=== PATIENT | male | born 2000 | race Caucasian/White ===

== ENCOUNTER 2020-09-23 08:11 | Emergency (ER) | payer BC, OTHER ==
[2020-09-23 08:19] VITALS: TEMP 98
[2020-09-23] MEDS ORDERED: MAG HYDROX/AL HYDROX/SIMETH 30 ML, HYOSCYAMINE ELIXIR 10 ML, LIDOCAINE VISCOUS 2% 10 ML PO STA ×3 (08:31)
--- NOTE | 2020-09-23 08:41 | ED ---
General Adult HPI - General Chief complaint: Chest Pain Stated complaint: Chest pain Time Seen by Provider: 09/23/20 08:23 Source: patient, family, RN notes reviewed Mode of arrival: ambulatory Limitations: no limitations - History of Present Illness Initial comments: This a 20-year-old male presents emergency Department with chief complaint of epigastric discomfort. Patient states that the last 2 mornings states it feels like a burning, squeezing-type discomfort. Patient states that cold foods seem to help with. Patient denies any upper chest pain, back pain, shortness breath, fevers or chills no diarrhea no nausea vomiting. 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 He is unsure exactly what the surgery was. He does follow-up with cardiology locally. Patient denies any medications. Denies any other complaints. - Related Data Home Medications Medication Instructions Recorded Confirmed Desmopressin [Ddavp] 0.6 mg PO HS 07/22/14 10/12/15 Divalproex [Depakote] 500 mg PO BID 07/22/14 10/12/15 guanFACINE HCL [Intuniv] 4 mg PO DAILY 07/22/14 10/12/15 Cholecalciferol [Vitamin D3] 2,000 unit PO DAILY 10/12/15 10/12/15 Cyproheptadine HCl [Periactin] 4 mg PO HS 10/12/15 10/12/15 Dexmethylphenidate HCl [Focalin Xr] 15 mg PO DAILY 10/12/15 10/12/15 Allergies Allergy/AdvReac Type Severity Reaction Status Date / Time No Known Allergies Allergy Verified 09/23/20 08:12 Review of Systems ROS Statement: Those systems with pertinent positive or pertinent negative responses have been documented in the HPI. ROS Other: All systems not noted in ROS Statement are negative. Past Medical History Additional Past Medical History / Comment(s): social anxiety adhd behavior disorder History of Any Multi-Drug Resistant Organisms: None Reported Past Surgical History: Heart Catheterization Additional Past Surgical History / Comment(s): Medical: Heart surgery. Past Psychological History: No Psychological Hx Reported Smoking Status: Never smoker Past Alcohol Use History: Occasional Past Drug Use History: None Reported General Exam Limitations: no limitations General appearance: alert, in no apparent distress Head exam: Present: atraumatic, normocephalic, normal inspection Neck exam: Present: normal inspection, full ROM. Absent: tenderness, meningismus, lymphadenopathy Respiratory exam: Present: normal lung sounds bilaterally. Absent: respiratory distress, wheezes, rales, rhonchi, stridor Cardiovascular Exam: Present: regular rate, normal rhythm, normal heart sounds. Absent: systolic murmur, diastolic murmur, rubs, gallop, clicks GI/Abdominal exam: Present: soft, tenderness (Epigastric), normal bowel sounds. Absent: distended, guarding, rebound, rigid Neurological exam: Present: alert Skin exam: Present: warm, dry, intact, normal color. Absent: rash Course Vital Signs 09/23/20 08:12 Temperature 98 F Pulse Rate 68 Respiratory 18 Rate Blood Pressure 127/77 O2 Sat by Pulse 95 Oximetry EKG Findings - EKG Comments: EKG Findings:: Normal sinus rhythm incomplete right bundle rate of 69 MD 126 QRS 102 QT/ QTC 416/445 - EKG Results: EKG: interpreted by [facility] Medical Decision Making - Medical Decision Making Patient's labs are unremarkable. Patient symptoms more consistent with reflux. Patient will be discharged in stable condition return parameters were discussed. - Lab Data Result diagrams: 09/23/20 08:45 09/23/20 08:45 Lab Results 09/23/20 09/23/20 09/23/20 Range/Units 08:45 08:45 08:45 WBC 8.3 (3.8-10.6) k/uL RBC 4.90 (4.30-5.90) m/uL Hgb 15.2 (13.0-17.5) gm/dL Hct 43.1 (39.0-53.0) % MCV 87.9 (80.0-100.0) fL MCH 31.0 (25.0-35.0) pg MCHC 35.3 (31.0-37.0) g/dL RDW 12.6 (11.5-15.5) % Plt Count 231 (150-450) k/uL MPV 7.9 Neutrophils % 82 % Lymphocytes % 11 % Monocytes % 6 % Eosinophils % 1 % Basophils % 0 % Neutrophils # 6.7 (1.3-7.7) k/uL Lymphocytes # 0.9 L (1.0-4.8) k/uL Monocytes # 0.5 (0-1.0) k/uL Eosinophils # 0.1 (0-0.7) k/uL Basophils # 0.0 (0-0.2) k/uL PT 10.2 (9.0-12.0) sec INR 0.9 (<1.2) APTT 24.9 (22.0-30.0) sec Sodium 143 (137-145) mmol/L Potassium 4.9 (3.5-5.1) mmol/L Chloride 104 (98-107) mmol/L Carbon Dioxide 29 (22-30) mmol/L Anion Gap 10 mmol/L BUN 12 (9-20) mg/dL Creatinine 0.68 (0.66-1.25) mg/dL Est GFR (CKD-EPI)AfAm >90 (>60 ml/min/1.73 sqM) Est GFR (CKD-EPI)NonAf >90 (>60 ml/min/1.73 sqM) Glucose 104 H (74-99) mg/dL Calcium 10.6 H (8.4-10.2) mg/dL Magnesium 2.2 (1.6-2.3) mg/dL Total Bilirubin 0.5 (0.2-1.3) mg/dL AST 32 (17-59) U/L ALT 33 (4-49) U/L Alkaline Phosphatase 98 (38-126) U/L Troponin I (0.000-0.034) ng/mL Total Protein 7.9 (6.3-8.2) g/dL Albumin 5.0 (3.5-5.0) g/dL Lipase 120 (23-300) U/L 09/23/20 Range/Units 08:45 WBC (3.8-10.6) k/uL RBC (4.30-5.90) m/uL Hgb (13.0-17.5) gm/dL Hct (39.0-53.0) % MCV (80.0-100.0) fL MCH (25.0-35.0) pg MCHC (31.0-37.0) g/dL RDW (11.5-15.5) % Plt Count (150-450) k/uL MPV Neutrophils % % Lymphocytes % % Monocytes % % Eosinophils % % Basophils % % Neutrophils # (1.3-7.7) k/uL Lymphocytes # (1.0-4.8) k/uL Monocytes # (0-1.0) k/uL Eosinophils # (0-0.7) k/uL Basophils # (0-0.2) k/uL PT (9.0-12.0) sec INR (<1.2) APTT (22.0-30.0) sec Sodium (137-145) mmol/L Potassium (3.5-5.1) mmol/L Chloride (98-107) mmol/L Carbon Dioxide (22-30) mmol/L Anion Gap mmol/L BUN (9-20) mg/dL Creatinine (0.66-1.25) mg/dL Est GFR (CKD-EPI)AfAm (>60 ml/min/1.73 sqM) Est GFR (CKD-EPI)NonAf (>60 ml/min/1.73 sqM) Glucose (74-99) mg/dL Calcium (8.4-10.2) mg/dL Magnesium (1.6-2.3) mg/dL Total Bilirubin (0.2-1.3) mg/dL AST (17-59) U/L ALT (4-49) U/L Alkaline Phosphatase (38-126) U/L Troponin I <0.012 (0.000-0.034) ng/mL Total Protein (6.3-8.2) g/dL Albumin (3.5-5.0) g/dL Lipase (23-300) U/L Disposition Clinical Impression: Atypical chest pain, GERD (gastroesophageal reflux disease) Disposition: HOME SELF-CARE Condition: Stable Instructions (If sedation given, give patient instructions): Gastroesophageal Reflux Disease (ED) Additional Instructions: Please return to the Emergency Department if symptoms worsen or any other concerns. Is patient prescribed a controlled substance at d/c from ED?: No Referrals: Filemon Coleman DO [Primary Care Provider] - 1-2 days Time of Disposition: 09:36
--- NOTE | 2020-09-23 09:01 | XR ---
EXAMINATION TYPE: XR chest 2V DATE OF EXAM: 09/23/2020 COMPARISON: 10/12/2015 HISTORY: 20-year-old male with chest pain TECHNIQUE: PA and lateral views FINDINGS: Median sternotomy wires are present. Heart normal size. Aorta and pulmonary vasculature within normal limits. No consolidation or pleural effusion. IMPRESSION: Median sternotomy wires. No acute cardiopulmonary process.
[2020-09-23 09:05] LABS: Basophils % (A) 0 %; Eosinophils # (A) 0.1 k/uL (0-0.7); Eosinophils % (A) 1 %; HCT 43.1 % (39.0-53.0); HGB 15.2 gm/dL (13.0-17.5); Lymphocytes # (A) 0.9 k/uL (1.0-4.8); Lymphocytes % (A) 11 %; MCHC 35.3 g/dL (31.0-37.0); MCV 87.9 fL (80.0-100.0); Mean Platelet Volume 7.9; Monocytes # (A) 0.5 k/uL (0-1.0); Monocytes % (A) 6 %; Neutrophils # (A) 6.7 k/uL (1.3-7.7); Neutrophils % (A) 82 %; Platelet Count 231 k/uL (150-450); RDW 12.6 % (11.5-15.5); WBC 8.3 k/uL (3.8-10.6)
[2020-09-23 09:15] LABS: ALT 33 U/L (4-49); AST 32 U/L (17-59); African American GFR (CKD) >90 (>60 ml/min/1.73 sqM); Alkaline Phosphatase 98 U/L (38-126); Anion Gap 10 mmol/L; Blood Urea Nitrogen 12 mg/dL (9-20); Calcium 10.6 mg/dL (8.4-10.2); Carbon Dioxide 29 mmol/L (22-30); Chloride 104 mmol/L (98-107); Glucose 104 mg/dL (74-99); INR 0.9 (<1.2); Lipase 120 U/L (23-300); Magnesium 2.2 mg/dL (1.6-2.3); Non-African American GFR(CKD) >90 (>60 ml/min/1.73 sqM); Partial Thromboplastin Time 24.9 sec (22.0-30.0); Potassium 4.9 mmol/L (3.5-5.1); Prothrombin Time 10.2 sec (9.0-12.0); Sodium 143 mmol/L (137-145); Total Bilirubin 0.5 mg/dL (0.2-1.3); Total Protein 7.9 g/dL (6.3-8.2)
[2020-09-23 09:47] VITALS: BP 137/80; PULSE 82; RESP 16
== END 2020-09-23 09:40 | disposition home or self-care (01) ==
LOC: SUPCPDRO 08:11 → EC 08:11
DX: K21.9 Gastro-esophageal reflux disease without esophagitis (principal); F41.9 Anxiety disorder, unspecified; F90.9 Attention-deficit hyperactivity disorder, unspecified type
CPT/HCPCS: 36415; 71046; 80053; 83690; 83735; 84484; 85025; 85610; 85730; 93005; 99285

== ENCOUNTER 2021-05-15 17:02 | Emergency (ER) | payer BC, OTHER ==
[2021-05-15 17:25] VITALS: RESP 20; TEMP 97
[2021-05-15] MEDS ORDERED: MAG HYDROX/AL HYDROX/SIMETH 30 ML, HYOSCYAMINE ELIXIR 10 ML, LIDOCAINE VISCOUS 2% 10 ML PO STA ×3 (19:18)
--- NOTE | 2021-05-15 19:23 | ED ---
General Adult HPI - General Chief complaint: Chest Pain Stated complaint: Chest Pain Time Seen by Provider: 05/15/21 19:15 Source: patient, family (sister) Mode of arrival: ambulatory Limitations: no limitations - History of Present Illness Initial comments: Well-appearing 21-year-old male, alert and oriented, presents to the emergency room with complaints of epigastric abdominal pain that started today. He states he has a history of GERD and he has been taking his Tums and Pepcid with no relief. He describes the pain as burning similar to his GERD pain. He states feels generalized fatigue also, all symptoms started today. He does have a history of coronary artery bypass graft for "fat around his heart at " surgery done at age 14. He denies any chest pain or shortness of breath. No cough or fevers. -: days(s) (1) Location: abdomen (Epigastric) Radiation: non-radiation Severity scale (1-10): 9 Quality: burning Consistency: constant Improves with: none Worsens with: none Associated Symptoms: malaise Treatments Prior to Arrival: other (tums, pepcid) - Related Data Home Medications Medication Instructions Recorded Confirmed Desmopressin [Ddavp] 0.6 mg PO HS 07/22/14 10/12/15 Divalproex [Depakote] 500 mg PO BID 07/22/14 10/12/15 guanFACINE HCL [Intuniv] 4 mg PO DAILY 07/22/14 10/12/15 Cholecalciferol [Vitamin D3] 2,000 unit PO DAILY 10/12/15 10/12/15 Cyproheptadine HCl [Periactin] 4 mg PO HS 10/12/15 10/12/15 Dexmethylphenidate HCl [Focalin Xr] 15 mg PO DAILY 10/12/15 10/12/15 Previous Rx's Medication Instructions Recorded Famotidine [Pepcid] 20 mg PO BID #28 tablet 05/15/21 Allergies Allergy/AdvReac Type Severity Reaction Status Date / Time No Known Allergies Allergy Verified 05/15/21 17:21 Review of Systems ROS Statement: Those systems with pertinent positive or pertinent negative responses have been documented in the HPI. ROS Other: All systems not noted in ROS Statement are negative. Past Medical History Past Medical History: No Reported History Additional Past Medical History / Comment(s): social anxiety adhd behavior disorder History of Any Multi-Drug Resistant Organisms: None Reported Past Surgical History: Coronary Bypass/CABG, Heart Catheterization Additional Past Surgical History / Comment(s): Medical: Heart surgery. Past Psychological History: ADD/ADHD, Anxiety Smoking Status: Never smoker Past Alcohol Use History: Rare Past Drug Use History: None Reported General Exam Limitations: no limitations General appearance: alert, in no apparent distress Eye exam: Present: normal appearance, EOMI. Absent: scleral icterus ENT exam: Present: normal exam, normal oropharynx, mucous membranes moist Neck exam: Present: normal inspection, full ROM. Absent: meningismus Respiratory exam: Present: normal lung sounds bilaterally. Absent: respiratory distress, wheezes, rales, rhonchi, stridor, chest wall tenderness, accessory muscle use, decreased breath sounds Cardiovascular Exam: Present: bradycardia, other (Mid sternal scar from a previous CABG). Absent: JVD GI/Abdominal exam: Present: soft, tenderness (Epigastric). Absent: distended, guarding, rebound, rigid Back exam: Present: normal inspection, full ROM. Absent: tenderness, CVA tenderness (R), CVA tenderness (L), rash noted Neurological exam: Present: alert, oriented X3 Psychiatric exam: Present: normal affect, normal mood Skin exam: Present: warm, dry, intact, normal color. Absent: rash, cyanosis, diaphoretic Course Vital Signs 05/15/21 05/15/21 17:21 19:00 Temperature 97.0 F L Pulse Rate 51 L 60 Respiratory 20 20 Rate Blood Pressure 145/73 135/75 O2 Sat by Pulse 100 99 Oximetry - Reevaluation(s) Reevaluation #1: 05/15/21 20:22 Patient states that the epigastric pain is resolved after the GI cocktail. He is resting comfortably on the bed Time: 20:22 EKG Findings - EKG Results: EKG: sinus rhythm (Ventricular rate of 63, WI interval 0.188, QRS 0.110, QTC 0.444) Medical Decision Making - Medical Decision Making 21-year-old male presents to emergency room with epigastric pain. He describes it as burning in nature similar to his GERD in the past. He denies any chest pain or shortness of breath. He does have a history of coronary artery bypass graft and anxiety. 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 He's had this problem since . He states he does take Pepcid once a day and has been taking Tums with no relief. He did get relief with the GI cocktail. Lung sounds are clear to auscultation. His coronavirus and flu swabs were negative. His oxygen saturation is 100%. Patient was offered blood work and refused. He states he is feeling much better and ready to be discharged home. This is likely the patient's GERD and he will be directed to take Pepcid twice a day and follow-up with his primary care doctor. Return to the emergency room with any new or worsening symptoms. Case discussed with Dr. Sequeira - Lab Data Lab Results 05/15/21 05/15/21 Range/Units 19:45 19:45 Coronavirus (PCR) Not Detected (Not Detectd) Influenza Type A RNA Not Detected (Not Detectd) Influenza Type B (PCR) Not Detected (Not Detectd) Disposition Clinical Impression: Gastroesophageal reflux disease Disposition: HOME SELF-CARE Condition: Good Instructions (If sedation given, give patient instructions): Gastroesophageal Reflux Disease (ED) Additional Instructions: Take 20 mg of Pepcid twice a day, once in the morning and once at bedtime. You can also try Maalox [id number]. Follow-up with the primary care doctor next week. Return to the emergency room with any new or concerning symptoms. Prescriptions: Famotidine [Pepcid] 20 mg PO BID #28 tablet Is patient prescribed a controlled substance at d/c from ED?: No Referrals: Filemon Coleman DO [Primary Care Provider] - 1-2 days
[2021-05-15 20:06] VITALS: BP 135/75; PULSE 60
== END 2021-05-15 21:09 | disposition home or self-care (01) ==
LOC: EC 17:02
DX: K21.9 Gastro-esophageal reflux disease without esophagitis (principal); F41.9 Anxiety disorder, unspecified; F90.9 Attention-deficit hyperactivity disorder, unspecified type; Z20.822 Contact with and (suspected) exposure to COVID-19; Z95.1 Presence of aortocoronary bypass graft
CPT/HCPCS: 87502; 87635; 93005; 99284

== ENCOUNTER 2021-06-24 01:02 | Observation (INO) | payer BC, OTHER ==
[2021-06-24] MEDS ORDERED: SODIUM CHLORIDE 0.9% 1,000 ML IV ONE (01:15)
--- NOTE | 2021-06-24 01:21 | ED ---
Chest Pain HPI - General Source: RN notes reviewed - History of Present Illness Complaint: chest pain <Gary Gresham - Last Filed: 06/24/21 03:21> <Raúl Grier - Last Filed: 06/24/21 04:27> - General Stated Complaint: Chest Pain Time Seen by Provider: 06/24/21 01:04 - History of Present Illness Initial Comments: This is a 21-year-old male presents in rest back complaining of chest tightness. Patient states it started several hours ago. Patient states she has had this before. Some anxiety and psychiatric issues. Patient states she also has GERD. He states he was been taking his medication and has not been helping. She denies fever or chills. He has had a COVID-19 immunization a few months ago. Patient denies any vomiting. Patient does have a history of a pericardectomy at 15 years old. Patient denies any fevers. Denies any changes in balance urination. No abdominal pain. No sore throat. No skin rashes or lesions. No illicit drug abuse. No alcohol abuse. Denies headache. No vision or hearing complaints. No testicular or penile pain. No problems with bowel movements or urination. Patient states the pain is "tight" with no alleviating or exacerbating factors. No radiation. Pointing to the substernal area. Unrelated to breathing. (Gary Gresham) - Related Data Home Medications Medication Instructions Recorded Confirmed Desmopressin [Ddavp] 0.6 mg PO HS 07/22/14 10/12/15 Divalproex [Depakote] 500 mg PO BID 07/22/14 10/12/15 guanFACINE HCL [Intuniv] 4 mg PO DAILY 07/22/14 10/12/15 Cholecalciferol [Vitamin D3] 2,000 unit PO DAILY 10/12/15 10/12/15 Cyproheptadine HCl [Periactin] 4 mg PO HS 10/12/15 10/12/15 Dexmethylphenidate HCl [Focalin Xr] 15 mg PO DAILY 10/12/15 10/12/15 Previous Rx's Medication Instructions Recorded Famotidine [Pepcid] 20 mg PO BID #28 tablet 05/15/21 Allergies Allergy/AdvReac Type Severity Reaction Status Date / Time No Known Allergies Allergy Verified 05/15/21 17:21 Review of Systems ROS Other: All systems not noted in ROS Statement are negative. <Gary Gresham - Last Filed: 06/24/21 03:21> ROS Other: All systems not noted in ROS Statement are negative. <Raúl Grier - Last Filed: 06/24/21 04:27> ROS Statement: Those systems with pertinent positive or pertinent negative responses have been documented in the HPI. EKG Findings - EKG Comments: EKG Findings:: EKG done at by the ED attending physician reveals sinus bradycardia with sinus arrhythmia. Rate of 43. QTC 448. Remainder of the intervals are normal. Left axis deviation. Intraventricular conduction delay with a QRS duration of 133 ms. No evidence of ST elevation. Patient does have inverted T waves in leads 3, as well as precordial leads. <Gary Gresham - Last Filed: 06/24/21 03:21> Past Medical History Past Medical History: No Reported History Additional Past Medical History / Comment(s): social anxiety adhd behavior disorder , Asperger syndrome, autism, antisocial disorder, pericardial abnormality History of Any Multi-Drug Resistant Organisms: None Reported Past Surgical History: Coronary Bypass/CABG, Heart Catheterization Additional Past Surgical History / Comment(s): Medical: Heart surgery. Past Anesthesia/Blood Transfusion Reactions: No Reported Reaction Past Psychological History: ADD/ADHD, Anxiety Smoking Status: Never smoker Past Alcohol Use History: Rare Past Drug Use History: None Reported <Gary Gresham - Last Filed: 06/24/21 03:21> General Exam General appearance: alert, in no apparent distress Head exam: Present: atraumatic, normocephalic, normal inspection Eye exam: Present: normal appearance, PERRL, EOMI. Absent: scleral icterus, conjunctival injection, periorbital swelling ENT exam: Present: normal exam, mucous membranes moist, TM's normal bilaterally Neck exam: Present: normal inspection. Absent: tenderness, meningismus, lymphadenopathy Respiratory exam: Present: normal lung sounds bilaterally. Absent: respiratory distress, wheezes, rales, rhonchi, stridor Cardiovascular Exam: Present: regular rate, normal rhythm, systolic murmur (Systolic heart murmur noted, best heard at the right sternal border.). Absent: diastolic murmur, rubs, gallop, clicks GI/Abdominal exam: Present: soft, normal bowel sounds. Absent: distended, tenderness, guarding, rebound, rigid Extremities exam: Present: normal inspection, full ROM, normal capillary refill. Absent: tenderness, pedal edema, joint swelling, calf tenderness Back exam: Present: normal inspection Neurological exam: Present: alert, oriented X3, CN II-XII intact Psychiatric exam: Present: normal affect, normal mood Skin exam: Present: warm, dry, intact, normal color. Absent: rash <Gary Gresham - Last Filed: 06/24/21 03:21> General appearance: alert, in no apparent distress Head exam: Present: atraumatic, normocephalic, normal inspection Eye exam: Present: normal appearance, PERRL, EOMI. Absent: scleral icterus, conjunctival injection, periorbital swelling ENT exam: Present: normal exam, mucous membranes moist Neck exam: Present: normal inspection. Absent: tenderness, meningismus, lymphadenopathy Respiratory exam: Present: normal lung sounds bilaterally. Absent: respiratory distress, wheezes, rales, rhonchi, stridor Cardiovascular Exam: Present: regular rate, normal rhythm, normal heart sounds. Absent: systolic murmur, diastolic murmur, rubs, gallop, clicks GI/Abdominal exam: Present: soft, normal bowel sounds. Absent: distended, tenderness, guarding, rebound, rigid Extremities exam: Present: normal inspection, full ROM, normal capillary refill. Absent: tenderness, pedal edema, joint swelling, calf tenderness Back exam: Present: normal inspection Neurological exam: Present: alert, oriented X3, CN II-XII intact Psychiatric exam: Present: normal affect, normal mood Skin exam: Present: warm, dry, intact, normal color. Absent: rash <Raúl Grier - Last Filed: 06/24/21 04:27> - General Exam Comments Initial Comments: Patient appears to be in minimal distress. Does not appear to be toxic. Vital signs reviewed. (Gary Gresham) Course <Raúl Grier - Last Filed: 06/24/21 04:27> Vital Signs 06/24/21 06/24/21 06/24/21 01:06 01:39 03:17 Temperature 98.7 F Pulse Rate 50 L 41 L 47 L Respiratory 18 18 18 Rate Blood Pressure 99/87 137/115 132/68 O2 Sat by Pulse 99 100 Oximetry - Reevaluation(s) Reevaluation #1: 06/24/21 04:26 Medical record is reviewed (Raúl Grier) Reevaluation #2: 06/24/21 04:26 Patient informed results questions answered (Raúl Grier) Reevaluation #3: 06/24/21 04:26 patient remains bradycardic with chest pain (Raúl Grier) - Consultations Consultation #1: Spoke with sound who will admit for observation cardiology to see (Raúl Grier) Chest Pain MDM <Gary Gresham - Last Filed: 06/24/21 03:21> <Raúl Grier - Last Filed: 06/24/21 04:27> - MDM This patient is a poor historian. Patient admits to having a pericardectomy when he was 15 years old but does not know why. When asked that the patient had a heart murmur, patient states that he "believes so." The case was discussed in detail with ED attending physician. Presentation, findings, treatment plan discussed in detail. Patient will be endorsed to the ED attending physician at 3:21 AM for further evaluation and disposition. Currently awaiting laboratory investigations. (Gary Gresham) 21 male will be admitted for echo chest pain observation with bradycardia (Raúl Grier) Critical Care Time Critical Care Time: Yes Total Critical Care Time: 31 <Raúl Grier - Last Filed: 06/24/21 04:27> Disposition <Gary Gresham - Last Filed: 06/24/21 03:21> <Raúl Grier - Last Filed: 06/24/21 04:27> Clinical Impression: Chest pain, atypical, Sinus bradycardia, Hypertension, poor control Disposition: ADMITTED IP TO THIS HOSP Condition: Fair Referrals: Filemon Coleman DO [Primary Care Provider] - 1-2 days
--- NOTE | 2021-06-24 01:34 | XR ---
EXAMINATION TYPE: XR chest 1V portable DATE OF EXAM: 06/24/2021 COMPARISON: NONE HISTORY: Chest pain TECHNIQUE: Single view FINDINGS: There is no heart failure nor confluent pneumonic infiltrate. Costophrenic angles are clear . There are sternal wires. Bony thorax is intact. IMPRESSION: No active cardiopulmonary disease. No change compared to 09/23/2020.
[2021-06-24] MEDS ORDERED: ASPIRIN 81 MG PO STA (03:16)
[2021-06-24] MEDS ORDERED: ACETAMINOPHEN TAB 500 MG TAB PO STA (03:17)
[2021-06-24] MEDS ORDERED: NALOXONE 0.4 MG/ML 1 ML VIAL IV PRN (04:24)
[2021-06-24] MEDS ORDERED: LORazepam 2 MG/ML INJ IV PRN (04:24)
[2021-06-24 05:07] LABS: Basophils % (A) 0 %; Eosinophils % (A) 0 %; HCT 45.5 % (39.0-53.0); Lymphocytes # (A) 0.8 k/uL (1.0-4.8); Lymphocytes % (A) 6 %; MCH 30.1 pg (25.0-35.0); MCV 91.3 fL (80.0-100.0); Mean Platelet Volume 8.5; Monocytes # (A) 0.7 k/uL (0-1.0); Monocytes % (A) 5 %; Neutrophils # (A) 11.6 k/uL (1.3-7.7); Neutrophils % (A) 87 %; Platelet Count 229 k/uL (150-450); RBC 4.99 m/uL (4.30-5.90); RDW 13.1 % (11.5-15.5); WBC 13.3 k/uL (3.8-10.6)
[2021-06-24] MEDS: MORPHINE SULFATE 4 MG/ML SYRINGE IV PRN ×3 (05:17→22:13)
[2021-06-24 05:22] LABS: ALT 29 U/L (4-49); AST 28 U/L (17-59); African American GFR (CKD) >90 (>60 ml/min/1.73 sqM); Albumin 4.8 g/dL (3.5-5.0); Alkaline Phosphatase 95 U/L (38-126); Anion Gap 12 mmol/L; Blood Urea Nitrogen 19 mg/dL (9-20); Calcium 9.8 mg/dL (8.4-10.2); Carbon Dioxide 23 mmol/L (22-30); Chloride 105 mmol/L (98-107); Glucose 125 mg/dL (74-99); Non-African American GFR(CKD) >90 (>60 ml/min/1.73 sqM); Potassium 3.8 mmol/L (3.5-5.1); Sodium 140 mmol/L (137-145); Total Bilirubin 0.5 mg/dL (0.2-1.3); Total Protein 7.7 g/dL (6.3-8.2)
[2021-06-24 05:43] LABS: Appearance,Urine Clear (Clear); Bilirubin,Urine Negative (Negative); Blood,Urine Negative (Negative); Color,Urine Light Yellow; Glucose,Urine (UA) Negative (Negative); Ketones,Urine Negative (Negative); Leukocyte Esterase,Urine Negative (Negative); Nitrite,Urine Negative (Negative); PH, Urine 6.5 (5.0-8.0); Protein,Urine Negative (Negative); Specific Gravity,Urine 1.016 (1.001-1.035); Urobilinogen,Urine <2.0 mg/dL (<2.0)
[2021-06-24 05:52] LABS: Amphetamine Screen,Urine Not Detected (NotDetected); Barbiturate Screen,Urine Not Detected (NotDetected); Benzodiazepines Screen,Urine Not Detected (NotDetected); Cocaine Screen,Urine Not Detected (NotDetected); Methadone Screen, Urine Not Detected (NotDetected); Opiate Screen,Urine Not Detected (NotDetected); Oxycodone Screen, Urine Not Detected (NotDetected); Phencyclidine Screen,Urine Not Detected (NotDetected); Tricyclic Antidepressant,Urine Not Detected (NotDetected); Urn Cannabinoid Scrn Not Detected (NotDetected)
--- NOTE | 2021-06-24 05:52 | P.HPIM ---
History of Present Illness H&P Date: 06/24/21 Patient is a 21-year-old male with a PMH of cardiac surgery at 15 years old (unknown reason) who now presents to the emergency room with complaints of chest pain. The patient reports that his pain started at around 8 PM tonight, suddenly, substernal, aching in nature, without associated symptoms, with no alleviating or exacerbating features, 7 out of 10 of maximal intensity, currently at a 3 out of 10. The patient denied experiencing palpitations, nausea, vomiting, diaphoresis, or dizziness. Of note, the patient has been pretty busy seen in the emergency room for chest discomfort and was discharged home. In the emergency room, an EKG revealed sinus bradycardia with sinus arrhythmia at 43 bpm with intraventricular conduction delay as well as T-wave inversions and flattening diffusely. Chest x-ray was unremarkable. Laboratory evaluation was brought with leukocytosis of 13.3 with troponin less than 0.012. Review of systems: Pertinent positives and negatives as discussed in HPI, a complete review of systems was performed and all other systems are negative. Physical examination: General: non toxic, no distress, appears at stated age, normal weight Derm: no unusual rashes/lesions no unusual ecchymoses, warm, dry Head: atraumatic, normocephalic, symmetric Eyes: EOMI, no lid lag, anicteric sclera, pupils equal round reactive to light ENT: Nose and ears atraumatic, no thrush, no pharyngeal erythema Neck: No thyromegaly, no cervical lymphadenopathy, trachea midline, supple Mouth: no lip lesion, mucus membranes moist Cardiovascular: Midline sternotomy scar noted, S1S2 reg, no murmur, positive posterior tibial pulse bilateral, no edema, capillary refill less than 2 seconds Lungs: CTA bilateral, no rhonchi, no rales , no accessory muscle use Abdominal: soft, nontender to palpation, no guarding, no appreciable organomegaly, normal bowel sounds Ext: no gross muscle atrophy, muscle strength 5 out of 5 in all 4 extremities grossly, no contractures, Neuro: CN II-XI grossly intact, light touch intact all 4 extremities, finger to nose within normal limits, Psych: Alert, oriented, appropriate affect Assessment/plan Chest pain, rule out ACS -Cardiac monitoring -Trend troponin -Cardiology consult -Obtain echocardiogram DVT prophylaxis -Heparin subq The patient is admitted with an anticipated less than 2 midnight stay for evaluation of chest pain CODE STATUS: full Code Discussed with: Patient Anticipated discharge date: in am Anticipated discharge place: Home Past Medical History Past Medical History: No Reported History Additional Past Medical History / Comment(s): social anxiety adhd behavior disorder , Asperger syndrome, autism, antisocial disorder, pericardial abnormality History of Any Multi-Drug Resistant Organisms: None Reported Past Surgical History: Coronary Bypass/CABG, Heart Catheterization Additional Past Surgical History / Comment(s): Medical: Heart surgery. Past Anesthesia/Blood Transfusion Reactions: No Reported Reaction Past Psychological History: ADD/ADHD, Anxiety Smoking Status: Never smoker Past Alcohol Use History: Rare Past Drug Use History: None Reported Medications and Allergies Home Medications Medication Instructions Recorded Confirmed Type Desmopressin [Ddavp] 0.6 mg PO HS 07/22/14 10/12/15 History Divalproex [Depakote] 500 mg PO BID 07/22/14 10/12/15 History guanFACINE HCL [Intuniv] 4 mg PO DAILY 07/22/14 10/12/15 History Cholecalciferol [Vitamin D3] 2,000 unit PO DAILY 10/12/15 10/12/15 History Cyproheptadine HCl [Periactin] 4 mg PO HS 10/12/15 10/12/15 History Dexmethylphenidate HCl [Focalin Xr] 15 mg PO DAILY 10/12/15 10/12/15 History Famotidine [Pepcid] 20 mg PO BID #28 tablet 05/15/21 Rx Allergies Allergy/AdvReac Type Severity Reaction Status Date / Time No Known Allergies Allergy Verified 05/15/21 17:21 Physical Exam Vitals: Vital Signs Temp Pulse Resp BP Pulse Ox 06/24/21 05:16 50 L 18 134/84 100 06/24/21 03:17 47 L 18 132/68 100 06/24/21 01:39 41 L 18 137/115 99 06/24/21 01:06 98.7 F 50 L 18 99/87 Intake and Output 06/23/21 06/23/21 06/24/21 14:59 22:59 07:59 Other: Weight 90.718 kg Results CBC & Chem 7: 06/24/21 04:43 06/24/21 04:43 Labs: Abnormal Lab Results - Last 24 Hours (Table) 06/24/21 06/24/21 Range/Units 04:43 04:43 WBC 13.3 H (3.8-10.6) k/uL Neutrophils # 11.6 H (1.3-7.7) k/uL Lymphocytes # 0.8 L (1.0-4.8) k/uL Glucose 125 H (74-99) mg/dL
[2021-06-24 06:15] LABS: Erythrocyte Sedimentation Rate 2 mm/hr (0-15)
--- NOTE | 2021-06-24 11:16 | P.CRDCN ---
History of Present Illness History of present illness: 21-year-old gentleman with history of congenital heart disease status post surgery comes to Hospital complaining of chest pain. Patient states that he has has chronic chest discomfort usually tries to tolerated it became intolerable yesterday came in to Hospital. Patient is a poor and reluctant historian. Very difficult to communicate with. He describes sharp precordial chest pain without definite radiation to neck, back and without clear-cut relieving or exacerbating factors. Patient states that he sees a groundskeeper supervisor but doesn't know the name. He also tells me that he had cardiac surgery and there is a surgical incision to confirm that but doesn't know the details of his surgery. He states that he had a tight valve and that was opened up. I don't have any old records on him at this time. He has had 3 sets of cardiac enzymes that are all within normal limits his EKG shows sinus bradycardia but there are no changes of pericarditis and on exam he does not have pericardial rub His EKG shows sinus bradycardia with nonspecific ST-T wave changes I will obtain a 2-D echo on him tomorrow to assess the pericardium and to rule out any structural heart disease. His chest discomfort does not seem cardiac. We will try and obtain his old records and obviously set him up for follow-up with his own groundskeeper supervisor Constitutional: Denies chills. Denies fever. Eyes: Denies blurred vision. Denies pain. Ears, nose, mouth and throat: Denies headache. Denies sore throat. Cardiovascular: Significant for chest pain. Denies shortness of breath. Respiratory: Denies cough. Gastrointestinal: Denies abdominal pain. Denies diarrhea. Denies nausea. Denies vomiting. Musculoskeletal: Denies myalgias. Integumentary: Denies pruritus. Denies rash. Neurological: Denies numbness. Denies weakness. Psychiatric: Denies anxiety. Denies depression. Endocrine: Denies fatigue. Denies weight change. Genitourinary: Denies burning, hematuria, frequency of urination. Hematological: No anemia or excess bleeding. General: The patient is awake and alert, in no distress, and does not appear acutely ill. Skin: Skin is warm and dry and no rashes or lesions are noted. Eye: Pupils are equal, round and reactive to light, extra-ocular movements are intact; there is normal conjunctiva bilaterally. Ears, nose, mouth and throat: There are moist mucous membranes and no oral lesions. Neck: The neck is supple, there is no tenderness or JVD. Cardiovascular: There is a regular rate and rhythm. No murmur, rub or gallop is appreciated. Respiratory: Lungs are clear to auscultation, respirations are non-labored, breath sounds are equal. Gastrointestinal: Soft, non-distended, non-tender abdomen without masses or organomegaly noted. There is no rebound or guarding present. Bowel sounds are unremarkable. Back: There is no tenderness to palpation in the midline. There is no obvious deformity. Musculoskeletal: Normal ROM, no tenderness, There is no pedal edema. There is no calf tenderness or swelling. Extremities: No edema. Vascular: Femoral pulse is normal. Posterior tibial pulses are normal .Dorsalis pedis is palpable. Neurological: CN II-XII intact. There are no obvious motor or sensory deficits. Speech is normal. Psychiatric: Difficult to communicate with Labs show that the troponins are negative hemoglobin is normal potassium is 3.8 creatinine is 0.67 Assessment and plan: Precordial chest pain History of congenital heart disease status post surgery Exact etiology for chest pain is unclear could be musculoskeletal will review his outpatient records and obtain a 2-D echo Past Medical History Past Medical History: No Reported History Additional Past Medical History / Comment(s): social anxiety adhd behavior disorder , Asperger syndrome, autism, antisocial disorder, pericardial abnorm ality History of Any Multi-Drug Resistant Organisms: None Reported Past Surgical History: Coronary Bypass/CABG, Heart Catheterization Additional Past Surgical History / Comment(s): Medical: Heart surgery. Past Anesthesia/Blood Transfusion Reactions: No Reported Reaction Past Psychological History: ADD/ADHD, Anxiety Smoking Status: Never smoker Past Alcohol Use History: Rare Past Drug Use History: None Reported Medications and Allergies Home Medications Medication Instructions Recorded Confirmed Type Desmopressin [Ddavp] 0.6 mg PO HS 07/22/14 10/12/15 History Divalproex [Depakote] 500 mg PO BID 07/22/14 10/12/15 History guanFACINE HCL [Intuniv] 4 mg PO DAILY 07/22/14 10/12/15 History Cholecalciferol [Vitamin D3] 2,000 unit PO DAILY 10/12/15 10/12/15 History Cyproheptadine HCl [Periactin] 4 mg PO HS 10/12/15 10/12/15 History Dexmethylphenidate HCl [Focalin Xr] 15 mg PO DAILY 10/12/15 10/12/15 History Famotidine [Pepcid] 20 mg PO BID #28 tablet 05/15/21 Rx Allergies Allergy/AdvReac Type Severity Reaction Status Date / Time No Known Allergies Allergy Verified 05/15/21 17:21 Physical Exam Vitals: Vital Signs Temp Pulse Pulse Resp BP BP Pulse Ox 06/24/21 08:00 58 L 06/24/21 07:59 97.5 F L 58 L 16 137/75 100 06/24/21 07:00 50 L 18 136/70 100 06/24/21 05:16 50 L 18 134/84 100 06/24/21 03:17 47 L 18 132/68 100 06/24/21 01:39 41 L 18 137/115 99 06/24/21 01:06 98.7 F 50 L 18 99/87 Intake and Output 06/23/21 06/24/21 06/24/21 21:59 06:59 14:59 Other: Weight 90.718 kg Results 06/24/21 04:43 06/24/21 04:43 Cardiac Enzymes 06/24/21 06/24/21 06/24/21 Range/Units 04:43 04:43 07:52 AST 28 (17-59) U/L Troponin I <0.012 0.025 (0.000-0.034) ng/mL CBC 06/24/21 Range/Units 04:43 WBC 13.3 H (3.8-10.6) k/uL RBC 4.99 (4.30-5.90) m/uL Hgb 15.0 (13.0-17.5) gm/dL Hct 45.5 (39.0-53.0) % Plt Count 229 (150-450) k/uL Comprehensive Metabolic Panel 06/24/21 Range/Units 04:43 Sodium 140 (137-145) mmol/L Potassium 3.8 (3.5-5.1) mmol/L Chloride 105 (98-107) mmol/L Carbon Dioxide 23 (22-30) mmol/L BUN 19 (9-20) mg/dL Creatinine 0.67 (0.66-1.25) mg/dL Glucose 125 H (74-99) mg/dL Calcium 9.8 (8.4-10.2) mg/dL AST 28 (17-59) U/L ALT 29 (4-49) U/L Alkaline Phosphatase 95 (38-126) U/L Total Protein 7.7 (6.3-8.2) g/dL Albumin 4.8 (3.5-5.0) g/dL Current Medications Generic Name Dose Route Start Last Admin Trade Name Freq PRN Reason Stop Dose Admin Heparin Sodium (Porcine) 5,000 unit 06/24/21 08:00 Heparin Sodium,Porcine/Pf 5,000 Unit/0.5 Ml Syringe SQ Q8HR VAHID Lorazepam 0.5 mg 06/24/21 04:24 Lorazepam 2 Mg/Ml Inj IV Q6HR PRN Anxiety Morphine Sulfate 4 mg 06/24/21 04:24 06/24/21 05:17 Morphine Sulfate 4 Mg/Ml Syringe IV 4 mg Q4HR PRN Administration Severe Pain Naloxone HCl 0.2 mg 06/24/21 04:24 Naloxone 0.4 Mg/Ml 1 Ml Vial IV Q2M PRN Opioid Reversal Intake and Output 06/23/21 06/24/21 06/24/21 21:59 06:59 14:59 Other: Weight 90.718 kg Patient Weight 06/25/21 06:59 Weight 90.718 kg 06/24/21 04:43 06/24/21 04:43
--- NOTE | 2021-06-24 12:33 | CT ---
EXAMINATION TYPE: CT chest angio for PE DATE OF EXAM: 06/24/2021 COMPARISON: None HISTORY: Chest pain, bradycardia CT DLP: 363.00 mGycm Automated exposure control for dose reduction was used. Technique: Multiple axial images are obtained to the chest following uneventful administration nonion ic IV contrast. Exam was performed according to the CTA protocol. 3-D postprocessing was performed. C oronal and sagittal reconstructions were obtained. CT Chest for pulmonary embolism performed with without and with IV Contrast, patient injected with 10 0 ml mL of Isovue 370. FINDINGS: LUNGS: The lungs are grossly clear, there is no concerning parenchymal mass or nodule identified. T here is no pleural effusion or pneumothorax seen. The tracheobronchial tree is patent. MEDIASTINUM: There is satisfactory enhancement of the pulmonary artery and its branches, there is no CT evidence for pulmonary embolism. There are no greater than 1 cm hilar or mediastinal lymph nodes. No pericardial effusion is seen. OTHER: No additional significant abnormality is seen. IMPRESSION: 1. No evidence of pulmonary embolism. 2. No acute cardiopulmonary disease.
[2021-06-24] MEDS: HEPARIN SODIUM,PORCINE/PF 5,000 UNIT/0.5 ML SYRINGE SQ SCH ×2 (17:00→20:12)
[2021-06-24] MEDS ORDERED: MELATONIN 5 MG TABLET PO PRN (21:43)
[2021-06-24] MEDS: DIVALPROEX 500 MG TABLET.DR PO SCH (22:11)
[2021-06-24] MEDS: FAMOTIDINE 20 MG TAB PO SCH (22:11)
[2021-06-25] MEDS: MORPHINE SULFATE 4 MG/ML SYRINGE IV PRN ×2 (02:16→07:23)
[2021-06-25 08:17] VITALS: BP 142/81; PULSE 62; RESP 15; TEMP 97.5
[2021-06-25] MEDS: HEPARIN SODIUM,PORCINE/PF 5,000 UNIT/0.5 ML SYRINGE SQ SCH (08:28)
[2021-06-25] MEDS: FAMOTIDINE 20 MG TAB PO SCH (08:28)
[2021-06-25] MEDS: DIVALPROEX 500 MG TABLET.DR PO SCH (08:28)
[2021-06-25] MEDS ORDERED: ACETAMINOPHEN TAB 325 MG TAB PO PRN (08:39)
[2021-06-25] MEDS ORDERED: HYDROcodone/APAP 5-325MG 1 EACH TAB PO PRN (08:39)
[2021-06-25] MEDS ORDERED: LOSARTAN 25 MG TAB PO SCH (09:00)
[2021-06-25] MEDS ORDERED: SERTRALINE 50 MG TAB PO SCH (09:00)
[2021-06-25 09:43] LABS: Basophils # (A) 0.02 X 10*3/uL (0.00-0.10); Basophils % (A) 0.3 %; Eosinophils # (A) 0.04 X 10*3/uL (0.04-0.35); Eosinophils % (A) 0.5 %; HCT 47.6 % (39.6-50.0); HGB 15.3 g/dL (13.0-17.0); Immature Grans, Automated 0.3 %; Lymphocytes # (A) 0.85 X 10*3/uL (0.90-5.00); Lymphocytes % (A) 10.8 %; MCH 28.8 pg (27.0-32.0); MCHC 32.1 g/dL (32.0-37.0); MCV 89.5 fL (80.0-97.0); Mean Platelet Volume 11.3 fL (9.5-12.2); Monocytes % (A) 8.9 %; NRBC Per 100 WBC 0 /100 WBCS (0.0-0.0); Neutrophils # (A) 6.22 X 10*3/uL (1.80-7.70); Neutrophils % (A) 79.2 %; Platelet Count 252 X 10*3/uL (140-440); RBC 5.32 X 10*6/uL (4.40-5.60); RDW 12.8 % (11.5-14.5); WBC 7.85 X 10*3/uL (4.50-10.00)
[2021-06-25 09:54] LABS: African American GFR (CKD) 141.9 (60.0-200.0); Anion Gap 14.2 mmol/L (10.00-18.00); BUN/Creat Ratio 12.4 Ratio (12.00-20.00); Blood Urea Nitrogen 10.8 mg/dL (9.0-27.0); Carbon Dioxide 25.1 mmol/L (20.0-27.5); Magnesium 2.2 mg/dL (1.5-2.4); Non-African American GFR(CKD) 122.5 (60.0-200.0); Potassium 4.1 mmol/L (3.5-5.5)
--- NOTE | 2021-06-25 10:37 | P.PN ---
Subjective Progress Note Date: 06/25/21 HISTORY OF PRESENT ILLNESS: Patient examined this morning at the bedside. Patient denies chest pain or pressure. He denies shortness of breath. The patient does complain of epigast ledy pain this morning. Vital signs are stable. PHYSICAL EXAM: VITAL SIGNS: Reviewed. GENERAL: Well-developed in no acute distress. NECK: Supple. No JVD or thyromegaly LUNGS: Respirations even and unlabored. Lungs essentially clear to auscultation bilaterally. HEART: Regular rate and rhythm. S1 and S2 heard. EXTREMITIES: Normal range of motion. No clubbing or cyanosis. Peripheral pulses intact. No lower extremity edema ASSESSMENT: Chest pain, acute coronary syndrome ruled out Epigastric pain History of congenital heart disease with previous surgery, exact details unknown PLAN: Continue current cardiac medications No further inpatient recommendations from a cardiac standpoint We will sign off. Please reconsult if needed. Nurse practitioner note has been reviewed by physician. Signing provider agrees with the documented findings, assessment, and plan of care. Objective - Vital Signs Vital signs: Vital Signs Temp 97.5 F L 06/25/21 07:20 Pulse 62 06/25/21 07:20 Resp 15 06/25/21 07:20 BP 142/81 06/25/21 07:20 Pulse Ox 98 06/25/21 07:20 Intake & Output 06/24/21 06/25/21 06/25/21 18:59 06:59 18:59 Weight 90.718 kg Other: # Voids 1 1 - Labs CBC & Chem 7: 06/25/21 05:47 06/25/21 05:47 Labs: Abnormal Lab Results - Last 24 Hours (Table) 06/25/21 Range/Units 05:47 Lymphocytes # 0.85 L (0.90-5.00) X 10*3/uL
--- NOTE | 2021-06-25 15:24 | P.DS ---
Providers Date of admission: 06/24/21 04:24 Expected date of discharge: 06/25/21 Attending physician: Dionne Sena MD Primary care physician: Filemon [facility] Course: Chest pain, Atypical Patient is a 21-year-old male with a PMH of cardiac surgery at 15 years old (unknown reason) who now presents to the emergency room with complaints of chest pain. In the emergency room, an EKG revealed sinus bradycardia with sinus arrhythmia at 43 bpm with intraventricular conduction delay as well as T-wave inversions and flattening diffusely. Chest x-ray was unremarkable. Laboratory evaluation was brought with leukocytosis of 13.3 with troponin less than 0.012. Troponins trended negative. Pt seen and cleared by cardiology to go home. Gen: awake, alert HEENT: normocephalic, atraumatic, good hearing acuity, moist mucous membranes Resp: good air exchange, breathing comfortably with no accessory muscle use CVS: good distal perfusion x 4, GI: soft, NTTP, ND : no SPT, no CVAT, majano catheter not present MSK: no pitting edema, no clubbing Neuro: non-focal, moving all extremities Psych: cooperative, euthymic mood Patient Condition at Discharge: Good Plan - Discharge Summary Discharge Rx Participant: No New Discharge Prescriptions: New Acetaminophen Tab [Tylenol] 650 mg PO Q6HR PRN tab PRN Reason: Fever And/ Or Pain Continue Divalproex [Depakote] 500 mg PO BID guanFACINE HCL [Intuniv] 4 mg PO DAILY Famotidine [Pepcid] 20 mg PO BID #28 tablet Sertraline [Zoloft] 50 mg PO DAILY Omeprazole 20 mg PO DAILY Melatonin 5 mg PO HS PRN PRN Reason: Insomnia Losartan Potassium [Cozaar] 25 mg PO DAILY Discontinued Dexmethylphenidate HCl [Focalin Xr] 20 mg PO DAILY Discharge Medication List Divalproex [Depakote] 500 mg PO BID 07/22/14 [History] guanFACINE HCL [Intuniv] 4 mg PO DAILY 07/22/14 [History] Famotidine [Pepcid] 20 mg PO BID #28 tablet 05/15/21 [Rx] Losartan Potassium [Cozaar] 25 mg PO DAILY 06/24/21 [History] Melatonin 5 mg PO HS PRN 06/24/21 [History] Omeprazole 20 mg PO DAILY 06/24/21 [History] Sertraline [Zoloft] 50 mg PO DAILY 06/24/21 [History] Acetaminophen Tab [Tylenol] 650 mg PO Q6HR PRN tab 06/25/21 [Rx] Follow up Appointment(s)/Referral(s): Filemon Coleman DO [Primary Care Provider] - 1-2 days Patient Instructions/Handouts: Chest Pain (DC) Discharge Disposition: HOME SELF-CARE
--- NOTE | 2021-06-27 10:59 | ECHOF ---
Referral Reason:cp MEASUREMENTS -------- HEIGHT: 188.0 cm WEIGHT: 90.7 kg BP: 152/76 IVSd: 1.3 cm (0.6 - 1.1) LVIDd: 4.9 cm (3.9 - 5.3) LVPWd: 1.2 cm (0.6 - 1.1) EDV(Teich): 113 ml IVSs: 1.7 cm LVIDs: 3.0 cm LVPWs: 1.7 cm %IVS Thck: 31 % ESV(Teich): 36 ml EF(Teich): 68 % %FS: 38 % SV(Teich): 77 ml LA Diam: 3.2 cm (2.7 - 3.8) RVIDd: 2.8 cm (< 3.3) LALs A4C: 4.2 cm LAAs A4C: 13.6 cm LAESV A-L A4C: 37 ml LAESV MOD A4C: 30 ml LALs A2C: 4.3 cm LAAs A2C: 13.4 cm LAESV A-L A2C: 35 ml LAESV MOD A2C: 33 ml LAESV(A-L): 37 ml LAESV Index (A-L): 16.75 ml/m Ao Diam: 2.9 cm (2.0 - 3.7) AV Cusp: 2.1 cm (1.5 - 2.6) EPSS: 1.2 cm MV E Brad: 1.17 m/s MV DecT: 233 ms MV Dec Hooker: 5.0 m/s MV A Brad: 0.56 m/s MV E/A Ratio: 2.10 MV PHT: 68 ms LVOT Vmax: 1.64 m/s LVOT maxP.80 mmHg AV Vmax: 1.94 m/s AV maxP.05 mmHg AV Vmax: 1.94 m/s AV Vmean: 1.13 m/s AV maxP.06 mmHg AV meanP.37 mmHg AV Env.Ti: 321 ms AV VTI: 36.2 cm AR Vmax: 3.77 m/s AR maxP.84 mmHg AR PHT: 970 ms AR Dec Time: 3345 ms AR Dec Hooker: 1.1 m/s MV EF SLOPE: 31.19 mm/s (70 - 150) MV EXCURSION: 10.74 mm (> 18.000) FINDINGS -------- Resting bradycardia (HR<60bpm). This was a technically adequate study. The left ventricular size is normal. There is mild concentric left ventricular hypertrophy. Overa ll left ventricular systolic function is normal with, an EF between 55 - 60 %. The right ventricle is normal in size. Normal LA size by volume 22+/-6 ml/m2. The right atrium is normal in size. Interatrial and interventricular septum intact. The aortic valve is bicuspid. There is mild aortic regurgitation. There is mild aortic stenosis p resent. Peak/mean gradient across the Aortic Valve is 15.06mmHg / 6.37mmHg. There is trace to mild mitral regurgitation. Trace tricuspid regurgitation present. Unable to estimate RVSP due to inadequate TR jet spectral do ppler profile. There is no pulmonic regurgitation present. The aortic root size is normal. Normal inferior vena cava with normal inspiratory collapse consistent with estimated right atrial pre ssure of 5 mmHg. There is no pericardial effusion. CONCLUSIONS -------- 1. The left ventricular size is normal. 2. There is mild concentric left ventricular hypertrophy. 3. Overall left ventricular systolic function is normal with, an EF between 55 - 60 %. 4. The aortic valve is bicuspid. 5. There is mild aortic regurgitation. 6. There is mild aortic stenosis present. 7. Peak/mean gradient across the Aortic Valve is 15.06mmHg / 6.37mmHg. 8. There is trace to mild mitral regurgitation. 9. Trace tricuspid regurgitation present. 10. There is no pulmonic regurgitation present. 11. There is no pericardial effusion. NETWORK CONSULTANT: Audrey Felder RDCS
== END 2021-06-25 12:45 | disposition home or self-care (01) ==
LOC: EC 01:02 → 6NMEDSUR 04:24
PROVIDERS: ADMIT Internal Medicine; ATTEND Internal Medicine
DX: R07.89 Other chest pain (principal); K21.9 Gastro-esophageal reflux disease without esophagitis; Z87.74 Personal history of (corrected) congenital malformations of heart and circulatory system; R07.2 Precordial pain; R00.1 Bradycardia, unspecified; D72.829 Elevated white blood cell count, unspecified; F40.10 Social phobia, unspecified; F91.9 Conduct disorder, unspecified; F41.9 Anxiety disorder, unspecified; I45.9 Conduction disorder, unspecified; F84.5 Asperger's syndrome; F90.9 Attention-deficit hyperactivity disorder, unspecified type; I35.0 Nonrheumatic aortic (valve) stenosis; I10 Essential (primary) hypertension; Z95.1 Presence of aortocoronary bypass graft; Z79.899 Other long term (current) drug therapy
CPT/HCPCS: 96376 ×2; 96372 ×2; 96361; 96374; 99291; 93005; 93306; 80053; 80048; 85652; 83735 ×2; 84484; 85025 ×2; 81003; 80306; 71045; 71275; G0378 ×2; J2270 ×2; Q9967; J1644 ×2

== ENCOUNTER 2022-12-28 04:26 | Emergency (ER) | payer BC, OTHER ==
[2022-12-28 04:34] VITALS: RESP 18
[2022-12-28 04:57] LABS: Basophils % (A) 0 %; Eosinophils # (A) 0.1 k/uL (0-0.7); Eosinophils % (A) 2 %; HCT 43.3 % (39.0-53.0); Lymphocytes # (A) 2.1 k/uL (1.0-4.8); Lymphocytes % (A) 30 %; MCH 30.3 pg (25.0-35.0); MCHC 34.7 g/dL (31.0-37.0); MCV 87.2 fL (80.0-100.0); Mean Platelet Volume 9.1; Monocytes # (A) 0.4 k/uL (0-1.0); Monocytes % (A) 5 %; Neutrophils # (A) 4.2 k/uL (1.3-7.7); Neutrophils % (A) 60 %; Platelet Count 185 k/uL (150-450); RBC 4.96 m/uL (4.30-5.90); WBC 7.1 k/uL (3.8-10.6)
[2022-12-28 05:09] LABS: ALT 49 U/L (4-49); African American GFR (CKD) >90 (>60 ml/min/1.73 sqM); Anion Gap 10 mmol/L; Blood Urea Nitrogen 18 mg/dL (9-20); Carbon Dioxide 25 mmol/L (22-30); Chloride 103 mmol/L (98-107); Glucose 114 mg/dL (74-99); Non-African American GFR(CKD) >90 (>60 ml/min/1.73 sqM); Sodium 138 mmol/L (137-145); Total Bilirubin 0.9 mg/dL (0.2-1.3)
[2022-12-28 05:16] LABS: Prothrombin Time 10.3 sec (9.0-12.0)
[2022-12-28 05:43] LABS: Partial Thromboplastin Time 21.5 sec (22.0-30.0)
[2022-12-28 05:49] LABS: AST 32 U/L (17-59); Albumin 4.6 g/dL (3.5-5.0); Alkaline Phosphatase 73 U/L (38-126); Potassium 4.4 mmol/L (3.5-5.1); Total Protein 7.6 g/dL (6.3-8.2)
[2022-12-28] MEDS ORDERED: KETOROLAC 15 MG/ML 1 ML VIAL IVP STA (06:13)
--- NOTE | 2022-12-28 06:43 | ED ---
General Adult HPI - General Chief complaint: Chest Pain Stated complaint: chest pain Time Seen by Provider: 12/28/22 04:49 Source: EMS Mode of arrival: EMS - History of Present Illness Initial comments: This is a 22-year-old male with a past medical history including Asberger Syndrome presents emergency department for chest pain via EMS. The patient reported that he was woken up out of sleep with lower central chest pain at the base of his surgical scar that started at 3 AM in the morning. The patient stated that this happens every other month and states that he normally just "waits it out." The patient's sister was at the bedside and did state that when this happens, the patient does note to come to the emergency department but gets inpatient and decides to leave without being seen as he has a anxiety disorder and antisocial disorder. The patient on evaluation was resting in bed comfortably and stated that the pain was persistent but did not radiate. The patient denied any nausea, vomiting as well as any fevers and chills. - Related Data Home Medications Medication Instructions Recorded Confirmed Divalproex [Depakote] 500 mg PO BID 07/22/14 06/24/21 guanFACINE HCL [Intuniv] 4 mg PO DAILY 07/22/14 06/24/21 Losartan Potassium [Cozaar] 25 mg PO DAILY 06/24/21 06/24/21 Melatonin 5 mg PO HS PRN 06/24/21 06/24/21 Omeprazole 20 mg PO DAILY 06/24/21 06/24/21 Sertraline [Zoloft] 50 mg PO DAILY 06/24/21 06/24/21 Previous Rx's Medication Instructions Recorded Famotidine [Pepcid] 20 mg PO BID #28 tablet 05/15/21 Acetaminophen Tab [Tylenol] 650 mg PO Q6HR PRN tab 06/25/21 Ketorolac [Toradol] 10 mg PO TID #30 tab 12/28/22 Allergies Allergy/AdvReac Type Severity Reaction Status Date / Time No Known Allergies Allergy Verified 12/28/22 04:33 Review of Systems ROS Statement: Those systems with pertinent positive or pertinent negative responses have been documented in the HPI. ROS Other: All systems not noted in ROS Statement are negative. Past Medical History Past Medical History: No Reported History Additional Past Medical History / Comment(s): social anxiety adhd behavior diso rder , Asperger syndrome, autism, antisocial disorder, pericardial abnormality History of Any Multi-Drug Resistant Organisms: None Reported Past Surgical History: Coronary Bypass/CABG, Heart Catheterization Additional Past Surgical History / Comment(s): Medical: Heart surgery. Past Anesthesia/Blood Transfusion Reactions: No Reported Reaction Past Psychological History: ADD/ADHD, Anxiety Smoking Status: Never smoker Past Alcohol Use History: Rare Past Drug Use History: None Reported General Exam Limitations: no limitations General appearance: alert, in no apparent distress Head exam: Present: atraumatic, normocephalic, normal inspection Eye exam: Present: normal appearance, PERRL Pupils: Present: normal accommodation ENT exam: Present: normal exam, normal oropharynx, mucous membranes moist Neck exam: Present: normal inspection, full ROM Respiratory exam: Present: normal lung sounds bilaterally, chest wall tenderness (TTP over the lower central sternum) Cardiovascular Exam: Present: regular rate, normal rhythm, normal heart sounds GI/Abdominal exam: Present: soft, normal bowel sounds Extremities exam: Present: normal inspection, full ROM Back exam: Present: normal inspection, full ROM Neurological exam: Present: alert, oriented X3, CN II-XII intact Psychiatric exam: Present: normal affect, normal mood Skin exam: Present: warm, dry Course Vital Signs 12/28/22 12/28/22 12/28/22 04:30 05:33 06:49 Temperature 98.2 F 98.7 F Pulse Rate 51 L 54 L 58 L Respiratory 18 18 18 Rate Blood Pressure 120/68 122/74 134/72 O2 Sat by Pulse 98 98 98 Oximetry EKG Findings - EKG Comments: EKG Findings:: An EKG was obtained and was interpreted by myself showing a rate of 49, WI interval 155, QRS duration 124 and QTC of 423. This EKG showed a sinus bradycardia with a right bundle branch block however there was no ST segment elevation or depression noted. Medical Decision Making - Medical Decision Making Was pt. sent in by a medical professional or institution (, PA, SOCIAL MEDIA MARKETING ANALYST, urgent care, hospital, or fci...) When possible be specific @ -No Did you speak to anyone other than the patient for history (EMS, parent, family, police, friend...)? What history was obtained from this source @ -Yes, patient's sister was at the bedside and did confirm that the patient does have an anxiety as well as antisocial disorder. Did you review nursing and triage notes (agree or disagree)? Why? @ -I reviewed and agree with nursing and triage notes Were old charts reviewed (outside hosp., previous admission, EMS record, old EKG, old radiological studies, urgent care reports/EKG's, fci records)? Report findings @ -No old charts were reviewed Differential Diagnosis (chest pain, altered mental status, abdominal pain women, abdominal pain men, vaginal bleeding, weakness, fever, dyspnea, syncope, headache, dizziness, GI bleed, back pain, seizure, CVA, palpatations, mental health)? @ -Costochondritis, chest wall muscle strain, ACS EKG interpreted by me (3pts min.). @ -As above X-rays interpreted by me (1pt min.). @ -Chest x-ray was obtained and was interpreted by myself showing no acute process. CT interpreted by me (1pt min.). @ -None done U/S interpreted by me (1pt. min.). @ -None done What testing was considered but not performed or refused? (CT, X-rays, U/S, labs)? Why? @ -None What meds were considered but not given or refused? Why? @ -None Did you discuss the management of the patient with other professionals (professionals i.e. , PA, SOCIAL MEDIA MARKETING ANALYST, lab, RT, psych nurse, social media marketing analyst, flight paramedic, teacher, consumer safety officer, window caser)? Give summary @ -No Was smoking cessation discussed for >3mins.? @ -No Was critical care preformed (if so, how long)? @ -No Were there social determinants of health that impacted care today? How? (Homelessness, low income, unemployed, alcoholism, drug addiction, transportation, low edu. Level, literacy, decrease access to med. care, care home, rehab)? @ -No Was there de-escalation of care discussed even if they declined (Discuss DNR or withdrawal of care, Hospice)? DNR status @ -No What co-morbidities impacted this encounter? (DM, HTN, Smoking, COPD, CAD, Cancer, CVA, ARF, Chemo, Hep., AIDS, mental health diagnosis, sleep apnea, morbid obesity)? @ -Asberger Syndrome, anxiety disorder, antisocial disorder Was patient admitted / discharged? Hospital course, mention meds given and route, prescriptions, significant lab abnormalities, going to OR and other pertinent info. @ -The patient was seen and evaluated emergency department. Physical exam, the patient was resting in bed without any acute distress. Vital signs admission were stable. Due to the nature the patient's complaints, laboratory workup was obtained as was a chest x-ray. All workup was negative and as I went to evaluate the patient, the patient did state that he was ready to go home. The patient did receive Toradol for his pain and stated that he was ready to go home. The patient was given a prescription for Toradol to be sent to the pharmacy and was told to take his medication as prescribed. The patient was also advised to follow-up with his sales stock associate for further workup and evaluation and to report back to the emergency department if his pain became acutely worse. The patient was agreeable to this and all discretions were answered. The patient was discharged home in stable condition with his sister. Undiagnosed new problem with uncertain prognosis? @ -No Drug Therapy requiring intensive monitoring for toxicity (Heparin, Nitro, Insu juliana, Cardizem)? @ -No Were any procedures done? @ -No Diagnosis/symptom? @ -Costochondritis Acute, or Chronic, or Acute on Chronic? @ -Acute Uncomplicated (without systemic symptoms) or Complicated (systemic symptoms)? @ -Uncomplicated Side effects of treatment? @ -No Exacerbation, Progression, or Severe Exacerbation? @ -No Poses a threat to life or bodily function? How? (Chest pain, [place], [place], pneumonia, PE, COPD, DKA, ARF, appy, cholecystitis, CVA, Diverticulitis, Homicidal, Suicidal, threat to staff... and all critical care pts) @ -No - Lab Data Result diagrams: 12/28/22 04:44 12/28/22 04:44 Lab Results 12/28/22 12/28/22 12/28/22 Range/Units 04:44 04:44 04:44 WBC 7.1 (3.8-10.6) k/uL RBC 4.96 (4.30-5.90) m/uL Hgb 15.0 (13.0-17.5) gm/dL Hct 43.3 (39.0-53.0) % MCV 87.2 (80.0-100.0) fL MCH 30.3 (25.0-35.0) pg MCHC 34.7 (31.0-37.0) g/dL RDW 13.0 (11.5-15.5) % Plt Count 185 (150-450) k/uL MPV 9.1 Neutrophils % 60 % Lymphocytes % 30 % Monocytes % 5 % Eosinophils % 2 % Basophils % 0 % Neutrophils # 4.2 (1.3-7.7) k/uL Lymphocytes # 2.1 (1.0-4.8) k/uL Monocytes # 0.4 (0-1.0) k/uL Eosinophils # 0.1 (0-0.7) k/uL Basophils # 0.0 (0-0.2) k/uL PT 10.3 (9.0-12.0) sec INR 1.0 (<1.2) APTT 21.5 L (22.0-30.0) sec Sodium 138 (137-145) mmol/L Potassium 4.4 (3.5-5.1) mmol/L Chloride 103 (98-107) mmol/L Carbon Dioxide 25 (22-30) mmol/L Anion Gap 10 mmol/L BUN 18 (9-20) mg/dL Creatinine 0.89 (0.66-1.25) mg/dL Est GFR (CKD-EPI)AfAm >90 (>60 ml/min/1.73 sqM) Est GFR (CKD-EPI)NonAf >90 (>60 ml/min/1.73 sqM) Glucose 114 H (74-99) mg/dL Calcium 10.0 (8.4-10.2) mg/dL Total Bilirubin 0.9 (0.2-1.3) mg/dL AST 32 (17-59) U/L ALT 49 (4-49) U/L Alkaline Phosphatase 73 (38-126) U/L Troponin I (0.000-0.034) ng/mL Total Protein 7.6 (6.3-8.2) g/dL Albumin 4.6 (3.5-5.0) g/dL 12/28/22 Range/Units 04:44 WBC (3.8-10.6) k/uL RBC (4.30-5.90) m/uL Hgb (13.0-17.5) gm/dL Hct (39.0-53.0) % MCV (80.0-100.0) fL MCH (25.0-35.0) pg MCHC (31.0-37.0) g/dL RDW (11.5-15.5) % Plt Count (150-450) k/uL MPV Neutrophils % % Lymphocytes % % Monocytes % % Eosinophils % % Basophils % % Neutrophils # (1.3-7.7) k/uL Lymphocytes # (1.0-4.8) k/uL Monocytes # (0-1.0) k/uL Eosinophils # (0-0.7) k/uL Basophils # (0-0.2) k/uL PT (9.0-12.0) sec INR (<1.2) APTT (22.0-30.0) sec Sodium (137-145) mmol/L Potassium (3.5-5.1) mmol/L Chloride (98-107) mmol/L Carbon Dioxide (22-30) mmol/L Anion Gap mmol/L BUN (9-20) mg/dL Creatinine (0.66-1.25) mg/dL Est GFR (CKD-EPI)AfAm (>60 ml/min/1.73 sqM) Est GFR (CKD-EPI)NonAf (>60 ml/min/1.73 sqM) Glucose (74-99) mg/dL Calcium (8.4-10.2) mg/dL Total Bilirubin (0.2-1.3) mg/dL AST (17-59) U/L ALT (4-49) U/L Alkaline Phosphatase (38-126) U/L Troponin I <0.012 (0.000-0.034) ng/mL Total Protein (6.3-8.2) g/dL Albumin (3.5-5.0) g/dL Disposition Clinical Impression: Chest wall muscle strain Disposition: HOME SELF-CARE Condition: Stable Instructions (If sedation given, give patient instructions): Costochondritis (ED) Prescriptions: Ketorolac [Toradol] 10 mg PO TID #30 tab Is patient prescribed a controlled substance at d/c from ED?: No Referrals: Filemon Coleman DO [Primary Care Provider] - 1-2 days Time of Disposition: 06:40
[2022-12-28 06:50] VITALS: BP 134/72; PULSE 58; TEMP 98.7
--- NOTE | 2022-12-28 07:45 | XR ---
EXAMINATION TYPE: XR chest 2V DATE OF EXAM: 12/28/2022 COMPARISON: 06/24/2021 HISTORY: Chest pain TECHNIQUE: Frontal and lateral views of the chest are obtained. FINDINGS: There is no focal air space opacity. No evidence for pneumothorax. No pleural effusion.Postoperative changes of median sternotomy. The cardiac silhouette size is within normal limits. The osseous structures are grossly intact. IMPRESSION: 1. No acute cardiopulmonary process.
== END 2022-12-28 06:55 | disposition home or self-care (01) ==
LOC: EC 04:26
DX: S29.011A Strain of muscle and tendon of front wall of thorax, initial encounter (principal); M94.0 Chondrocostal junction syndrome [Tietze]; I45.10 Unspecified right bundle-branch block; F41.9 Anxiety disorder, unspecified; F90.9 Attention-deficit hyperactivity disorder, unspecified type; Z79.899 Other long term (current) drug therapy; Z95.1 Presence of aortocoronary bypass graft; X58.XXXA Exposure to other specified factors, initial encounter
CPT/HCPCS: 36415; 93005; 80053; 84484; 85025; 85610; 85730; 71046; 99285; 96374; J1885